=== PATIENT | female | born 1995 | race Caucasian/White ===

== ENCOUNTER 2025-05-18 02:33 | Observation (INO) | payer BC, SELFPAY ==
[2025-05-17 23:12] VITALS: BP 108/74
[2025-05-17] MEDS: ZOFRAN ODT (ORALLY DISINTEGRATING) 4 MG PO (23:18)
[2025-05-18 00:03] VITALS: BP 121/76
[2025-05-18 00:04] VITALS: BMI 26.5
[2025-05-18] MEDS: ZOFRAN 4 MG IV (00:09)
[2025-05-18 00:37] LABS: HCG, Serum Qualitative Screen Negative
--- NOTE | 2025-05-18 00:42 | ED.GENMED ---
History of Present Illness
General
Chief Complaint: Abdominal Symptoms
Source: patient and spouse
Exam Limitations: none
Time Seen by Provider: 05/18/25 00:03
Nursing documentation reviewed up to this point in time: agreed with
History of Present Illness
History of Present Illness:
29-year-old female was at a restaurant 5 PM had 2 episodes of diarrhea felt ill went home been vomiting numerous times, some more diarrhea, no sick contacts she did have a salad earlier today, no one else was sick she is in the midst of fertility
treatments received Ovidrel about 2 weeks ago told that she did have a falsely positive hCG test, said no vaginal bleeding no pelvic pain
Past History
Past History
ED Past Medical History: None
ED Past Surgical History: None
Social History
Tobacco: Non-smoker
Alcohol: None
Drug: None
Personal:
Living: with family
Employment: Employed
Review of Systems
Review of Systems
All Other Systems: Not applicable
Constitutional: Denies fever, fatigue or chills
EENT: Reports no symptoms
Respiratory: Reports no symptoms
Cardiac: Reports no symptoms
ABD/GI: Reports abdominal pain, nausea, vomiting and diarrhea; Denies bloody stools or black stools
: Reports no symptoms; Denies bleeding
Musculoskeletal: Reports muscle stiffness
Skin: Reports no symptoms
Neurological: Reports dizzy, headache and weakness
Phy Exam
Physical Exam
Physical Exam:
Physical Exam
General: 29 female looks uncomfortable nontoxic
Neck: Dry lips
Heart: Tachycardic
Lungs: no acute respiratory distress. clear bilaterally
Abdomen: Soft nontender
Neuro: alert and oriented. no focal neurological deficits
Skin: no rash
Psychiatric: well kept. interactive and cooperative
Extremities: no edema.
Course
Orders/Labs/Results
Orders:
Orders
05/17/25 23:16
Ondansetron Orally Disint [Zofran Odt (Orally Disintegrating)] 4 mg PO NOW STA
05/18/25 00:03
Ondansetron Injectable [Zofran] 4 mg IV NOW STA
05/18/25 00:11
HCG, Urine Qualitative Screen Urgent
Date Specimen was Collected: 05/18/25
Time Specimen was Collected: 00:13
Test Result ONCE
05/18/25 00:14
Urinalysis Reflex To Culture Urgent
Date Specimen was Collected: 05/18/25
Time Specimen was Collected: 00:14
Test Result ONCE
05/18/25 00:15
Complete Blood Count/With Diff Urgent
Comprehensive Metabolic Panel Urgent
HCG, Serum Qualitative Screen Urgent
Comment: Notify provider if positive test present
Lipase Urgent
05/18/25 00:58
Norovirus by PCR Urgent
DODIE Source: Feces/Stool
Specimen Description:
05/18/25 00:59
Influenza A+B Rapid Molecular Urgent
DODIE Source: Nasal Swab
Specimen Description:
05/18/25 01:07
Diphenhydramine [Benadryl] 25 mg IV NOW STA
NSS 1000mL Bolus WIDE OPEN 0.9% Sodium Chloride 1000 ml [Nss] 1,000 ml IV BOLUS
Abnormal Lab Results
05/18/25
00:15
WBC 16.2 H 10^3/uL
(4.8-10.8)
MPV 11.4 H fL
(7.4-10.4)
Abs Immat Gran (auto) 0.1 H 10^3/uL
(0-0.05)
Absolute Neuts (auto) 14.7 H 10^3/uL
(1.4-6.5)
Absolute Lymphs (auto) 0.7 L 10^3/uL
(1.2-3.4)
Neutrophils % 90.7 H %
(42.2-75.2)
Lymphocytes % 4.1 L %
(20.5-51.1)
Chloride 108 H mmol/L
(98-107)
Carbon Dioxide 13 L* mmol/L
(22-30)
BUN 18 H mg/dl
(7-17)
Glucose 146 H mg/dl
(70-99)
Albumin 5.2 H g/dl
(3.5-5.0)
Lipase 418 H U/L
(23-300)
05/18/25 00:15
05/18/25 00:15
Vital Signs
Initial and Last Documented VS:
Initial Vital Signs
Temp Pulse Resp BP Pulse Ox
98.5 F 122 24 108/74 99
05/17/25 23:12 05/17/25 23:12 05/17/25 23:12 05/17/25 23:12 05/17/25 23:12
Last Documented Vital Signs
Temp Pulse Resp BP Pulse Ox
98.5 F 122 24 108/74 99
05/17/25 23:12 05/17/25 23:12 05/17/25 23:12 05/17/25 23:12 05/18/25 00:43
MDM/Problems Addressed
Differential Diagnosis Includes:
Dehydration influenza norovirus dehydration
MDM/Problems Addressed:
Nausea vomiting diarrhea
Chronic conditions affecting care:
On fertility drugs may give false positive hCG
*Pulse Oximetry
SaO2: 99
Oxygen Mode of Delivery: Room air
Patient hypoxic: no
*Critical Care Note
Total Time (30-74mins, 75-104mins- exclusive of procedures): Not Applicable
Update Note
Update Note:
1:10 AM labs noted still nauseous will give a third dose of antiemetics continue IV fluids check influenza and norovirus may require admission
ED Attending Note
-
Portions of this chart may have been created with voice recognition software.� Occasional wrong word or��sound alike� substitutions may have occurred due to the inherent limitations of voice recognition software.
Discharge Plan
Departure
Patient Disposition: Admit
Date of Disposition: 05/18/25
Time of Disposition: 01:08
Admit to: Med/Surg
Presentation/result/management discussed w/ accepting MD/DO: Hospitalist
Patient with high blood pressure during this ER visit?: No
Condition: Fair
Discharge Problem:
Acute dehydration
Prescriptions:
No Action
norgestimate-ethinyl estradiol [Sprintec (28)] 1 TAB tablet
1 tab PO DAILY
cefprozil [Cefzil] 500 MG tablet
500 mg PO BID
ondansetron 4 MG tablet,disintegrating
4 mg PO TIDPRN PRN (Reason: nausea/vomiting) Qty: 10 0RF
Referrals:
Velasquez Myles MD [Family Provider, Family Practice]
Interventions
Interventions:
*General Assessment Last Done: 05/18/25 00:01
*Neglect/Abuse Screening Last Done: 05/17/25 23:12
*ED COVID-19 Vaccine History Last Done: 05/17/25 23:12
*ED Influenza Vaccine History Last Done: 05/17/25 23:12
*Risk Screen - Suicide (C-SSRS) Last Done: 05/18/25 00:01
Discharge Date and Time
Print Language: GUAMANIAN
[2025-05-18 00:49] LABS: ALT (SGPT) 22 U/L (0-35); AST (SGOT) 26 U/L (14-36); Albumin 5.2 g/dl (3.5-5.0); Alkaline Phosphatase 84 U/L (38-126); Blood Urea Nitrogen 18 mg/dl (7-17); Calcium 9.9 mg/dl (8.4-10.2); Carbon Dioxide 13 mmol/L (22-30); Chloride 108 mmol/L (98-107); Estimated Creatinine Clearance 81 ml/min; Glucose 146 mg/dl (70-99); Lipase 418 U/L (23-300); Potassium 4.1 mmol/L (3.5-5.1); Sodium 137 mmol/L (135-145); Total Protein 8.1 g/dl (6.3-8.2); eGFR > 60.00
[2025-05-18 01:02] LABS: Hematocrit 44.2 % (37.0-47.0); Hemoglobin 15.5 g/dL (12.0-16.0); Mean Corp Hgb Conc. 35.1 g/dL (33.0-37.0); Mean Corpuscular Volume 82.3 fL (81.0-99.0); Nucleated Red Blood Cells % 0 %; Platelet Count 308 10^3/uL (130-400); Red Cell Dist. Width 12.4 % (11.5-14.5)
[2025-05-18] MEDS: BENADRYL 25 MG IV (01:19)
[2025-05-18] MEDS: NSS 1000 IV ×2 (01:20→02:36)
[2025-05-18 01:38] LABS: Urine Character Slightly Cloudy (Clear)
[2025-05-18 01:40] LABS: HCG, Urine Qualitative Screen Negative
--- NOTE | 2025-05-18 02:07 | HPS.HSE ---
Family Physician
-
Family Physician: Velasquez Myles
Chief Complaint
-
Vomiting diarrhea
History of Present Illness
29-year-old with past medical history of reflux as an otherwise no segment past medical history presents to the emergency department with 1 day of vomiting and diarrhea.
Patient reports acute onset of vomiting and diarrhea this afternoon. Was nonbloody and nonbilious. She reports multiple episodes of vomiting and is now unable to keep anything down. She states she vomited about 10 times. Initially he was
containing food materials but now she is not having any significant output but clear liquid. She reported that she had diarrhea about 4 times which was mostly liquid without any blood.
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 She denies any clear sick contact. She denies any recent travel. She reports that she is trying to get and has not had any alcohol to drink in over 2 weeks. She denies any new
medications. She is currently not taking any medication.
She denies any fevers or chills. At the time I was evaluating her she requested to have something to drink. She says nausea that improved significantly.
In the emergency department blood pressure was 111/36, she was tachycardic to 122, oxygen saturation was 98% on room air.
Associated white count of 16.2 with hemoglobin of 15.5 and plate count of 208. Anion gap of 16. Bicarb 13 otherwise electrolytes BUN and creatinine were normal. She does have elevated albumin to 5.2. LFTs unremarkable. Lipase mildly elevated to
400. test was negative.
Medical History
Past Medical History
Past Medical History: Reports None
Past Surgical History: Reports None
Social History
Tobacco: Non-smoker
Alcohol: Occasional
Drug: None
Family History
Family History: Not pertinent
Allergies / Home Medications
Allergies reflects when Allergies were last updated in [employer].
Home Medications with original date entered in [employer]
Allergy/Medication List:
Allergies
Allergy/AdvReac Type Severity Reaction Status Date / Time
Penicillins Allergy Rash Verified 05/17/25 23:11
Home Medications
cefprozil 500 mg tablet (Cefzil) 500 mg PO BID 02/06/18
norgestimate 0.25 mg-ethinyl estradiol 0.035 mg tablet (Sprintec (28)) 1 tab PO DAILY 02/06/18
ondansetron 4 mg disintegrating tablet 4 mg PO TIDPRN PRN nausea/vomiting #10 tabs 02/06/18
Review of Systems
-
Constitutional: Reports No Symptoms
EENT: Reports No Symptoms
Respiratory: Reports No Symptoms
Cardiac: Reports No Symptoms
Abdomen/GI: Reports Nausea, Vomiting and Diarrhea
: Reports No Symptoms
Musculoskeletal: Reports No Symptoms
Skin: Reports No Symptoms
Neurological: Reports No Symptoms
Endocrine: Reports No Symptoms
Hematologic/Lymphatic: Reports No Symptoms
Psych: Reports No Symptoms
Physical Exam
Vital Signs
Vital Signs
Temp Pulse Resp BP Pulse Ox
98.5 F 122 24 121/76 99
05/17/25 23:12 05/17/25 23:12 05/17/25 23:12 05/18/25 00:03 05/18/25 00:43
Physical Exam
General: Well Developed, Well Nourished and No Apparent Distress
HEENT: NormoCephalic, Moist mucous membranes and Atraumatic
Respiratory: Clear
Cardiac: S1/S2 and Regular Rhythm; No Murmur or Rub
GI: Soft, Non Tender, Non Distended and Normal Bowel Sounds; No Organomegaly
Rectal: Deferred by Provider
Musculoskeletal: No Clubbing, No Cyanosis and No Edema
Skin: No Rash
Neuro: AO x 3 and Nonfocal/grossly intact
Laboratory Results
-
05/18/25 00:15
05/18/25 00:15
Laboratory Results
Total Bilirubin 0.8 mg/dl (0.2-1.3) 05/18/25 00:15
AST 26 U/L (14-36) 05/18/25 00:15
ALT 22 U/L (0-35) 05/18/25 00:15
Alkaline Phosphatase 84 U/L (38-126) 05/18/25 00:15
Lipase 418 U/L (23-300) H 05/18/25 00:15
Impression/Plan
-
IMPRESSION:
29-year-old female without significant past medical history presents to the emergency department with episode of nausea and vomiting as well as diarrhea that started 1 day ago in the afternoon. She is nontoxic-appearing and hemodynamically stable.
Currently she has a white count of 16.2 bicarb of 13 with anion gap of 16. She also show otherwise labs normal-appearing labs. LFTs were normal. She does have a mild elevation in lipase. She denies any recent alcohol use. She denies any history
of gallbladder disease or gallstones.
PLAN:
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
� Admit to MedSurg observation
� Clear liquid diet for now
� Continue with IV D5 lactated Ringer's
� Continue antiemetics
� Monitor for diarrhea, currently no further diarrhea
� Pain control
� She has mildly elevated lipase, however she denies any significant risk factors for pancreatitis. Will repeat the lipase in the morning but for now unlikely she has alcohol induced pancreatitis and cannot rule out gallstones. If lipase remains
elevated in the morning we will check a right upper quadrant ultrasound.
DVT prophylaxis�SCDs
CODE STATUS�full code
[2025-05-18 02:10] LABS: Urine Red Blood Cell 0-2 /HPF (0-2)
[2025-05-18] MEDS: D5LR 500 IV (02:39)
[2025-05-18] MEDS: D5LR 1000 IV ×3 (05:55→20:17)
[2025-05-18 06:31] LABS: ALT (SGPT) 15 U/L (0-35); AST (SGOT) 18 U/L (14-36); Albumin 3.3 g/dl (3.5-5.0); Alkaline Phosphatase 44 U/L (38-126); Blood Urea Nitrogen 12 mg/dl (7-17); Calcium 7.5 mg/dl (8.4-10.2); Carbon Dioxide 17 mmol/L (22-30); Chloride 114 mmol/L (98-107); Estimated Creatinine Clearance 121 ml/min; Glucose 206 mg/dl (70-99); Lipase 83 U/L (23-300); Magnesium 1.3 mg/dl (1.6-2.3); Potassium 3.9 mmol/L (3.5-5.1); Sodium 137 mmol/L (135-145); Total Protein 5.6 g/dl (6.3-8.2); eGFR > 60.00
[2025-05-18 07:06] VITALS: BP 142/127
[2025-05-18 07:19] VITALS: BP 142/87
[2025-05-18 08:03] LABS: Hematocrit 35.5 % (37.0-47.0); Hemoglobin 12.5 g/dL (12.0-16.0); Mean Corp Hgb Conc. 35.2 g/dL (33.0-37.0); Mean Corpuscular Volume 82.9 fL (81.0-99.0); Platelet Count 217 10^3/uL (130-400); Red Cell Dist. Width 12.6 % (11.5-14.5)
[2025-05-18 08:07] LABS: ALT (SGPT) 17 U/L (0-35); AST (SGOT) 20 U/L (14-36); Albumin 3.7 g/dl (3.5-5.0); Alkaline Phosphatase 52 U/L (38-126); Blood Urea Nitrogen 12 mg/dl (7-17); Calcium 7.9 mg/dl (8.4-10.2); Carbon Dioxide 18 mmol/L (22-30); Chloride 110 mmol/L (98-107); Estimated Creatinine Clearance 104 ml/min; Glucose 109 mg/dl (70-99); Lipase 79 U/L (23-300); Magnesium 1.4 mg/dl (1.6-2.3); Potassium 3.8 mmol/L (3.5-5.1); Sodium 135 mmol/L (135-145); Total Protein 6.1 g/dl (6.3-8.2); eGFR > 60.00
[2025-05-18] MEDS: TORADOL 10 MG IV (09:18)
[2025-05-18] MEDS: MAGNESIUM SULFATE 50 IV (09:24)
[2025-05-18] MEDS: PROZAC 20 MG PO (10:54)
--- NOTE | 2025-05-18 11:16 | CM ---
Chart reviewed. OBS form reviewed
Spoke with pt at ED bedside
Lives with
Independent
NO DME
PCP Velasquez Myles
[facility] in [place]
no hx of VN nor SNF
DCP is to go home no needs
can provide transportation
CM will continue to follow up for any dcp needs
--- NOTE | 2025-05-18 11:59 | W.PN.HOSP.TC ---
Today's Communication/Plan
-
Monitor vital signs see plan
Continue with symptomatic management
Continue with LR
Clears for now, if improving later today then can advance to full
Nonbillable note
Assessment / Plan
Assessment / Plan
General: Well Developed, Well Nourished and No Apparent Distress
HEENT: NormoCephalic, Moist mucous membranes and Atraumatic
Respiratory: Clear
Cardiac: S1/S2 and Regular Rhythm; No Murmur or Rub
GI: Soft, Non Tender, Non Distended and Normal Bowel Sounds
Musculoskeletal: No Edema
Neuro: AO x 3 and Nonfocal/grossly intact
acute gastritis/gastroenteritis�Likely secondary to acute norovirus.
� Clear liquid diet for now, If feeling better later today then can advance to full liquid
Continue with LR
� Continue antiemetics
� Monitor for diarrhea
� Pain control
� She has mildly elevated lipaseLikely secondary to nausea and vomiting. Lipase now normal. No concern for pancreatitis at this time.
Acute dehydration
Fluids
DVT prophylaxis�SCDs
CODE STATUS�full code
Anticipated Discharge: Within 24 hours
Subjective/Interval History
-
Date of Service: May 18, 2025
Feeling better however still has some symptoms
Objective Data
-
Labs:
Laboratory Results
05/18/25 05/18/25 05/18/25
00:15 05:52 07:31
WBC 16.2 H Cancelled 10.9 H
Hgb 15.5 Cancelled 12.5
Hct 44.2 Cancelled 35.5 L
Plt Count 308 Cancelled 217 D
Sodium 137 137 135
Potassium 4.1 3.9 3.8
Chloride 108 H 114 H 110 H
Carbon Dioxide 13 L* 17 L 18 L
BUN 18 H 12 12
Creatinine 0.9 0.6 0.7
Glucose 146 H 206 H 109 H
Calcium 9.9 7.5 L D 7.9 L
Total Bilirubin 0.8 0.5 0.6
AST 26 18 20
ALT 22 15 17
Alkaline Phosphatase 84 44 52
Vital Signs:
Vital Signs
Temp Pulse Resp BP Pulse Ox
100.0 F 105 18 142/87 99
05/18/25 07:19 05/18/25 07:19 05/18/25 07:19 05/18/25 07:19 05/18/25 07:19
[2025-05-18 13:42] VITALS: BMI 27.0
[2025-05-18 14:01] VITALS: BP 132/93
[2025-05-18] MEDS: TYLENOL 650 MG PO (14:13)
--- NOTE | 2025-05-18 14:30 | PTCARENOTE ---
Pt. admitted to [facility] around 1330, pt. walked from stretcher to room. Pt. extremely emotional about staying here, explained that she is being admitted and the likelihood of staying the night for supportive measures. Pt. expresses understanding just
'does not want to spend Chris in the hospital.' Pt. oriented to room, all questions asked and answered. Pt. given oral Tylenol for general body aches. Will continue with current plan of care.
[2025-05-18 23:00] VITALS: BP 128/74
[2025-05-19] MEDS: D5LR 1000 IV (05:08)
[2025-05-19 07:20] VITALS: BP 148/86
[2025-05-19] MEDS: PROZAC 20 MG PO (07:21)
--- NOTE | 2025-05-19 09:59 | W.PN.HOSP.TC ---
Today's Communication/Plan
-
Monitor vital signs see plan
Now feeling better, discharge today
Time of discharge 36 minutes
Assessment / Plan
Assessment / Plan
General: Well Developed, Well Nourished and No Apparent Distress
HEENT: NormoCephalic, Moist mucous membranes and Atraumatic
Respiratory: Clear
Cardiac: S1/S2 and Regular Rhythm; No Murmur or Rub
GI: Soft, Non Tender, Non Distended and Normal Bowel Sounds
Musculoskeletal: No Edema
Neuro: AO x 3 and Nonfocal/grossly intact
acute gastritis/gastroenteritis�Likely secondary to acute norovirus.
Not tolerating low residue diet. Denies any further diarrhea, nausea and vomiting. Discharge home today with outpatient follow-up with PCP
DC further fluids
� Continue antiemetics
� Monitor for diarrhea
� Pain control
� She has mildly elevated lipaseLikely secondary to nausea and vomiting. Lipase now normal. No concern for pancreatitis at this time.
Acute dehydration
Resolved
DVT prophylaxis�SCDs
CODE STATUS�full code
Anticipated Discharge: Today
Subjective/Interval History
-
Date of Service: May 19, 2025
denies pain
Objective Data
-
Labs:
Laboratory Results
05/19/25
08:06
WBC Pending
Hgb Pending
Hct Pending
Plt Count Pending
Sodium Pending
Potassium Pending
Chloride Pending
Carbon Dioxide Pending
BUN Pending
Creatinine Pending
Glucose Pending
Calcium Pending
Vital Signs:
Vital Signs
Temp Pulse Resp BP Pulse Ox
97.4 F 90 16 148/86 98
05/19/25 07:20 05/19/25 07:20 05/19/25 07:20 05/19/25 07:20 05/19/25 07:32
I&O
05/18/25 05/19/25 05/20/25
06:59 06:59 06:59
Intake Total 1500 / 1500
Balance 1500 / 1500
--- NOTE | 2025-05-19 10:01 | W.DCSUMMARY ---
Discharge Summary
Discharge Data
Date of Admission: 05/18/25
Date of Discharge: 05/19/25
-
Pending Results: No
Hospital Course
29-year-old female came to the hospital with nausea, vomiting and diarrhea. Patient was found positive for norovirus. Patient symptoms were likely thought was secondary to gastritis/gastroenteritis from acute norovirus. Patient was given
aggressive fluid resuscitation which continued to improve her symptoms. She was able to tolerate low residue diet prior to discharge. Since her symptoms continue to improve, she was then discharged home with instructions to follow-up with all her
physicians outpatient.
Discharge Plan
-
Patient Disposition: Home (Routine Discharge)
Discharge Diagnosis/Procedures: Gastritis/gastroenteritis secondary to norovirus
Condition: Fair
Diet: Low Residue
Activity: As tolerated
Driving Restrictions: As prior to admission
Bathing Restrictions: None
Referrals:
Velasquez Myles MD [Family Provider, Family Practice] - in less than 1 week
Prescriptions:
New
acetaminophen 325 mg Tablet
650 mg PO Q4HPRN PRN (Reason: mild pain/COLINDRES/temp> 100.4F) Qty: 0 0RF
Continued
progesterone micronized 200 mg Capsule
200 mg vaginal BID
fluoxetine 20 mg Capsule
20 mg PO DAILY
PNV no.95-ferrous fumarate-FA [] 28 mg iron- 800 mcg Tablet
1 tab PO DAILY
Discharge Orders:
Discharge Patient (As Directed); Ordered 05/19/25
Ordered By: Dhiraj Morelos
Discharge Date and Time
Discharge Date/Time: 05/19/25 10:38
Print Language: AZERI
--- NOTE | 2025-05-19 10:41 | CM ---
patient chart reviewed
Discharge today
IMM n/a
plan: home, no needs
to transport
== END 2025-05-19 10:38 | disposition home or self-care (01) ==
LOC: 3 WEST ACU 02:33
PROVIDERS: ADMITTING PHYSICIAN Internal Medicine; ATTENDING PHYSICIAN Internal Medicine; EMERGENCY PHYSICIAN Emergency Medicine; FAMILY PHYSICIAN Family Medicine
DX: A08.11 Acute gastroenteropathy due to Norwalk agent (principal); E86.0 Dehydration; Z88.0 Allergy status to penicillin
CPT/HCPCS: 80053; 81003; 81015; 81025; 82248; 83690; 83735; 84703; 85025; 85027; 87086; 87502; 87798; 96365; 96366; 96367; 96375; 99284; G0378